=== PATIENT | male | born 1990 | race Two or more races ===

== ENCOUNTER 2023-09-29 01:26 | Emergency (ER) | payer SELFPAY ==
[~2023-09-29] VITALS: Ht 160 cm; Wt 63.6 kg
[2023-09-29] MEDS: NALOXONE HCL 0.4 MG/ML VIAL IV ONE (02:00)
[2023-09-29] MEDS: SODIUM CHLORIDE 0.9% 1,000 ML IV ONE ×2 (02:00→09:57)
[2023-09-29 02:18] LABS: Basophils # (auto) 0 10 ^3/uL (0-0.2); Basophils % (auto) 0.4 % (0.0-2.0); Eosinophils # (auto) 0 10 ^3/uL (0-0.8); Eosinophils % (auto) 0.4 % (0.0-7.0); Hematocrit 44.2 % (41.0-53.0); Hemoglobin 15.8 g/dL (13.5-17.5); Mean Corpuscular Hemoglobin 31.3 pg (28.0-32.0); Mean Corpuscular Hgb Conc. 35.7 g/dL (32.0-36.0); Mean Corpuscular Volume 87.6 fL (80.0-100.0); Monocytes # (auto) 0.7 10 ^3/uL (0-1.3); Monocytes % (auto) 6.9 % (0.0-12.0); Neutrophils # (auto) 7.1 10 ^3/uL (1.6-8.6); Neutrophils % (auto) 72.3 % (37.0-80.0); Red Blood Cells 5.05 10^6/uL (4.5-5.90); Red Cell Distribution Width 12.9 % (11.8-14.3); White Blood Cell 9.9 10^3/uL (4.4-10.8)
[2023-09-29 02:32] LABS: Alanine Aminotransferase 36 U/L (7-40); Albumin 4.3 g/dL (3.2-4.8); Alkaline Phosphatase 94 U/L (46-116); Anion Gap 12 (5-15); Aspartate Aminotransferase 22 U/L (13-40); BUN/Creatinine Ratio 6.9 (10.0-20.0); Blood Urea Nitrogen 5 mg/dL (9-23); Calcium 9.1 mg/dL (8.7-10.4); Carbon Dioxide 23 mmol/L (20-30); Chloride 105 mmol/L (98-107); Glucose 98 mg/dL (74-106); Potassium 3.3 mmol/L (3.5-5.1); Sodium 140 mmol/L (136-145)
[2023-09-29 02:33] LABS: Acetaminophen < 2.0 UG/ML (10.0-20.0); Bilirubin, Total 0.6 mg/dL (0.2-1.0); Total Protein 7.5 g/dL (5.7-8.2)
[2023-09-29 02:34] LABS: Salicylate < 3.0 mg/dL (2.8-20.0)
[2023-09-29 03:40] VITALS: PULSE 99; RESP 21; O2SAT 96
[2023-09-29 07:45] VITALS: PULSE 70; RESP 12; O2SAT 97
[2023-09-29] MEDS: SODIUM CHLORIDE 0.9% 1,000 ML IVB ONE (08:07)
[2023-09-29 08:13] LABS: Urine Bacteria None Seen /hpf (None Seen)
[2023-09-29 08:26] LABS: Urine Blood 1+ /uL (Negative); Urine Clarity Clear (Clear); Urine Color Colorless (Yellow); Urine Protein, UAD Negative (Negative); Urine Specific Gravity 1.005 (1.001-1.035); Urine Urobilinogen Normal (Negative); Urine WBC 1 /hpf (0 - 3); Urine pH 5.5 (5.0-9.0)
[2023-09-29 08:36] LABS: Amphetamine Screen, Urine Neg (NEGATIVE); Barbiturate Scree,Urine Neg (NEGATIVE); Benzodiazephine Screen, Urine Pos (NEGATIVE); Cocaine Screen, Urine Neg (NEGATIVE); Opiate Scree,Urine Neg (NEGATIVE)
[2023-09-29 08:37] LABS: Cannabinoid Screen, Urine Neg (NEGATIVE); Phencyclidine Screen, Urine Neg (NEGATIVE)
[2023-09-29] MEDS: POTASSIUM EFFERVESENT TAB 25 MEQ PO ONE (15:41)
[2023-09-29 19:30] VITALS: PULSE 86; RESP 14; O2SAT 98
[2023-09-29 20:12] VITALS: BP 98/51; PULSE 70; RESP 18; TEMP 98.4; O2SAT 100
== END 2023-09-29 20:35 | disposition home or self-care (01) ==
LOC: EDBD 01:26 → ER 01:26
DX: R41.82 Altered mental status, unspecified (principal); R56.9 Unspecified convulsions
CPT/HCPCS: 36415; 70450; 72125; 80053; 80307; 80320; 80329; 81001; 83690; 83735; 84484; 85025; 93005; 96360; 96361; 99285; J2310; J7030